=== PATIENT | female | born 1985 | race Caucasian/White ===

== ENCOUNTER 2016-10-18 00:03 | Emergency (ER) | payer OTHER ==
[2016-10-18 00:12] VITALS: BP 137/92; PULSE 77; TEMP 98; BMI 30.1
--- NOTE | 2016-10-18 02:02 | PDOC ---
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 Patient states this past , she had her tooth extracted. Patient was prescribed Amoxicillin and Tylenol for pain. She reports pain worsening and medications not helping. She denies any other complaints at this time. Timing/Duration: getting worse Severity: moderate Modifying Factors: improves with: medication Associated Symptoms: denies: denies symptoms, chest pain, cough, diaphoresis, fever/chills, headaches, loss of appetite, malaise, nausea/vomiting, rash, seizure, shortness of breath, syncope, weakness, other Aspirin Received prior to arrival: No: no aspirin today, unknown, 81 mg x 1, 81 mg x 2, 81 mg x 3, 81 mg x 4, 325 mg x 1, provided at home, provided by EMS, provided by ED Past History - Travel Traveled outside of the country in the last 30 days: No Close contact w/someone who was outside of country & ill: No - Past Medical History Allergies/Adverse Reactions: Allergies Allergy/AdvReac Type Severity Reaction Status Date / Time No Known Drug Allergies Allergy Verified 10/18/16 00:10 Home Medications: Ambulatory Orders Oxycodone HCl/Acetaminophen [Percocet 5/325 -] 1 - 2 tab PO Q6H #20 tab Docusate Sodium [Colace -] 100 mg PO BID #20 capsule 10/18/16 Oxycodone HCl/Acetaminophen [Endocet 7.5-325 mg Tablet] 1 each PO Q4H PRN #18 tablet MDD 6 tab 10/18/16 Anemia: Yes Asthma: No Cancer: No Cardiac Disorders: No Diabetes: No HTN: No Suicide Attempt (Hx): No Seizures: No Thyroid Disease: No - Reproductive History (#): 2 Para: 1 Therapeutic (s) & number: No Spontaneous : 0 - Immunization History Immunization Up to Date: Yes - Psycho/Social/Smoking Cessation Hx Anxiety: No Suicidal Ideation: No Smoking History: Never smoked Have you smoked in the past 12 months: No Hx Alcohol Use: No Drug/Substance Use Hx: No Substance Use Type: None Hx Substance Use Treatment: No Review of Systems - Review of Systems Able to Perform ROS?: Yes Is the patient limited Prydeinig proficient: No Constitutional: No: Chills, Fever HEENTM: Yes: Dental Problems All Other Systems: Reviewed and Negative *Physical Exam - Vital Signs Last Vital Signs Temp Pulse Resp BP Pulse Ox 98 F 77 18 137/92 99 10/18/16 00:05 10/18/16 00:05 10/18/16 00:05 10/18/16 00:10/18/16 00:05 - Physical Exam General Appearance: Yes: Nourished, Appropriately Dressed, Mild Distress. No: Apparent Distress, Moderate Distress, Severe Distress HEENT: positive: EOMI, LAURO, Normal ENT Inspection, Normal Voice, Symmetrical, TMs Normal, Pharynx Normal, Other (Tooth extraction site to patient right lower mouth with sutures in place. No inflammation or signs of dry socket noted.). negative: Pharyngeal Erythema, Tonsillar Exudate, Tonsillar Erythema, TM Bulging , TM Dull, TM Erythema Neck: positive: Trachea midline, Supple. negative: Stridor, Lymphadenopathy (R) , Lymphadenopathy (L) Respiratory/Chest: positive: Lungs Clear, Normal Breath Sounds. negative: Chest Tender, Respiratory Distress, Accessory Muscle Use, Labored Respiration, Rapid RR Cardiovascular: positive: Regular Rhythm, Regular Rate Gastrointestinal/Abdominal: positive: Normal Bowel Sounds, Soft. negative: Distended, Guarding, Rebound, Tenderness Musculoskeletal: positive: Normal Inspection. negative: CVA Tenderness Extremity: positive: Normal Capillary Refill, Normal Inspection, Normal Range of Motion. negative: Pedal Edema, Swelling, Calf Tenderness, Erythema, Inflammation Integumentary: positive: Normal Color, Dry, Warm. negative: Erythema, Moist, Hives, Rash, Swelling Neurologic: positive: nailer hand II-XII NML intact, Fully Oriented, Alert, Normal Mood/ Affect, Normal Response, Motor Strength 5/5 Medical Decision Making - Medical Decision Making 10/18/16 01:57 The Drug Utilization Report below displays all of the controlled substance prescriptions, if any, that your patient has filled in the last twelve months. The information displayed on this report is compiled from pharmacy submissions to the Department, and accurately reflects the information as submitted by the pharmacies. This report was requested by: Dennis Pérez | Reference #: [id number] *DC/Admit/Observation/Transfer Diagnosis at time of Disposition: Pain, dental H/O tooth extraction Qualifiers: Tooth loss class: unspecified tooth loss Qualified Code(s): K08.409 - Partial loss of teeth, unspecified cause, unspecified class - Discharge Dispostion Disposition: HOME Condition at time of disposition: Stable Admit: No - Prescriptions Prescriptions: Docusate Sodium [Colace -] 100 mg PO BID #20 capsule Oxycodone HCl/Acetaminophen [Endocet 7.5-325 mg Tablet] 1 each PO Q4H PRN #18 tablet MDD 6 tab PRN Reason: Severe Pain - Patient Instructions Printed Discharge Instructions: DI for Dental Pain Additional Instructions: FOLLOW UP WITH YOUR DENTIST IF SYMPTOMS PERSIST. TAKE MEDICATIONS PRESCRIBED. DO NOT DRIVE, DRINK ALCOHOL, OR OPERATE HEAVY MACHINERY WHILE TAKING OXYCODONE. Print Language: YI"
[2016-10-18] MEDS ORDERED: DOCUSATE SODIUM 100 MG CAPSULE (FP) PO ONE ×2 (02:08→02:26)
[2016-10-18] MEDS ORDERED: OXYCODONE/APAP 5/325MG COMBO TABLET PO ONE (02:08)
[2016-10-18] MEDS ORDERED: OXYCODONE/APAP 5/325MG COMBO TABLET ONE (02:25)
== END 2016-10-18 02:43 | disposition home or self-care (01) ==
LOC: JER 00:03
DX: K08.89 Other specified disorders of teeth and supporting structures (principal); K08.409 Partial loss of teeth, unspecified cause, unspecified class
CPT/HCPCS: 99282-25

== ENCOUNTER 2017-07-17 16:31 | Emergency (ER) | payer OTHER ==
[2017-07-17 16:50] VITALS: BMI 30.3
[2017-07-17] MEDS ORDERED: FAMOTIDINE 20 MG/50 ML IVPB 20 MG/50 ML MG IVPB ONE ×2 (17:10→18:37)
[2017-07-17] MEDS ORDERED: ACETAMINOPHEN 1000 MG/100 ML VIAL (NON FORMULARY) IVPB ONE (17:10)
[2017-07-17] MEDS ORDERED: ONDANSETRON 4 MG/2 ML VIAL IVPUSH ONE (17:10)
[2017-07-17] MEDS ORDERED: SODIUM CHLORIDE 0.9% 1000 ML INFUS.BAG IV ONE (17:10)
--- NOTE | 2017-07-17 17:10 | PDOC ---
History of Present Illness - General Chief Complaint: Pain, Acute Stated Complaint: PAIN, ACUTE Time Seen by Provider: 07/17/17 17:03 Past History - Past Medical History Allergies/Adverse Reactions: Allergies Allergy/AdvReac Type Severity Reaction Status Date / Time No Known Drug Allergies Allergy Verified 10/18/16 00:10 Home Medications: Ambulatory Orders Sulfamethoxazole/Trimethoprim [Bactrim Ds -] 1 tab PO BID #14 tablet 07/17/17 Anemia: Yes Asthma: No Cancer: No Cardiac Disorders: No CVA: No COPD: No DVT: No Diabetes: No HTN: No Seizures: No Thyroid Disease: No - Reproductive History (#): 2 Para: 1 Therapeutic (s) & number: No Spontaneous : 0 - Immunization History Immunization Up to Date: Yes - Suicide/Smoking/Psychosocial Hx Smoking History: Never smoked Have you smoked in the past 12 months: No Information on smoking cessation initiated: No Hx Alcohol Use: No Drug/Substance Use Hx: No Substance Use Type: None Hx Substance Use Treatment: No *Physical Exam - Vital Signs Last Vital Signs Temp Pulse Resp BP Pulse Ox 99.2 F 108 H 18 124/71 99 07/17/17 16:31 07/17/17 16:31 07/17/17 16:31 07/17/17 16:31 07/17/17 16:31 ED Treatment Course - LABORATORY CBC & Chemistry Diagram: 07/17/17 18:00 07/17/17 20:50 Medical Decision Making - Medical Decision Making 07/17/17 17:30 a/p: 32yo female with subjective fevers since last night with L flank pain -also with dysuria - suspect uti vs pyelo vs renal colic -nausea today -no vomiting -last tyleno at 7a today -will check labs, ua -will do bedside u/s of gallbladder and renal -will medicate with ivf hydration, tylenol, zofran -will monitor and reassess *DC/Admit/Observation/Transfer Diagnosis at time of Disposition: Pyelonephritis - Discharge Dispostion Disposition: HOME Condition at time of disposition: Stable - Prescriptions Prescriptions: Sulfamethoxazole/Trimethoprim [Bactrim Ds -] 1 tab PO BID #14 tablet - Referrals - Patient Instructions Printed Discharge Instructions: DI for Kidney Infection Additional Instructions: Take your antibiotics as prescribed. Follow up with your primary doctor within 3 -4 days. Return to the emergency department if you have any new, worsening, or concerning symptoms. Print Language: BENINESE - Post Discharge Activity - Attestations Physician Attestion: 07/18/17 09:13 I, Dr. Moira Costello, DO, attest that this document has been prepared under my direction and personally reviewed by me in its entirety. I further attest, that it accurately reflects all work, treatment, procedures and medical decision -making performed by me.
[2017-07-17] MEDS ORDERED: ONDANSETRON 4 MG/2 ML VIAL ONE (17:21)
[2017-07-17] MEDS ORDERED: ACETAMINOPHEN INJECTION 100 ML IVPB ONE (17:21)
[2017-07-17 18:08] LABS: BASO % 0.4 % (0-2.0); EOS % 0.5 % (0-4.5); HEMATOCRIT 35.8 % (32.4-45.2); LYMPH % 16.2 % (8-40); MCH 29.4 pg (25.7-33.7); MCHC 33.6 g/dl (32.0-36.0); MEAN CELL VOLUME 87.4 fl (80-96); MEAN PLT VOLUME 9.1 fl (7.5-11.1); MONO % 6.1 % (3.8-10.2); NEUT % 76.8 % (42.8-82.8); PLATELET COUNT 195 K/MM3 (134-434); RDW 14.2 % (11.6-15.6); WHITE BLOOD COUNT 6.9 K/mm3 (4.0-10.0)
[2017-07-17 19:12] LABS: URINE APPEARANCE CLEAR; URINE BILIRUBIN NEGATIVE (<2.0 mg/dL); URINE BLOOD 1+ (NEGATIVE); URINE COLOR YELLOW; URINE GLUCOSE (UA) NEGATIVE (NEGATIVE); URINE KETONE NEGATIVE (NEGATIVE); URINE NITRITE NEGATIVE (NEGATIVE); URINE PROTEIN NEGATIVE (NEGATIVE)
[2017-07-17 19:14] LABS: URINE LEUK ESTERASE 1+ (NEGATIVE)
[2017-07-17 19:16] LABS: EPI CELLS RARE /HPF (FEW); URINE BACTERIA MANY /hpf (NONE SEEN); URINE MUCUS RARE
[2017-07-17 21:25] LABS: ALBUMIN 3.3 g/dl (3.4-5.0); ALK PHOS 59 U/L (45-117); ANION GAP 5 (8-16); BILIRUBIN,TOTAL 0.3 mg/dL (0.2-1.0); BLOOD UREA NITROGEN 5 mg/dL (7-18); CALCIUM 7.8 mg/dL (8.5-10.1); CHLORIDE 111 mmol/L (98-107); CO2 24 mmol/L (21-32); CREATININE 0.6 mg/dL (0.55-1.02); GLUCOSE,RANDOM 88 mg/dL (74-106); POTASSIUM 3.4 mmol/L (3.5-5.1); SGOT/AST 9 U/L (15-37); SGPT/ALT 23 U/L (12-78); SODIUM 140 mmol/L (136-145); TOT PROT 6.5 g/dl (6.4-8.2)
--- NOTE | 2017-07-17 21:59 | PDOC ---
*Physical Exam - Vital Signs Last Vital Signs Temp Pulse Resp BP Pulse Ox 99.2 F 108 H 18 124/71 99 07/17/17 16:31 07/17/17 16:31 07/17/17 16:31 07/17/17 16:31 07/17/17 16:31 ED Treatment Course - LABORATORY CBC & Chemistry Diagram: 07/17/17 18:00 07/17/17 20:50 - ADDITIONAL ORDERS Additional order review: Laboratory Results 07/17/17 07/17/17 07/17/17 20:50 19:51 18:00 Sodium 140 Cancelled Cancelled Potassium 3.4 L Cancelled Cancelled Chloride 111 H Cancelled Cancelled Carbon Dioxide 24 Cancelled Cancelled Anion Gap 5 L Cancelled Cancelled BUN 5 L Cancelled Cancelled Creatinine 0.6 Cancelled Cancelled Creat Clearance w eGFR > 60 Cancelled Cancelled Random Glucose 88 Cancelled Cancelled Calcium 7.8 L Cancelled Cancelled Total Bilirubin 0.3 Cancelled Cancelled AST 9 L Cancelled Cancelled ALT 23 Cancelled Cancelled Alkaline Phosphatase 59 Cancelled Cancelled Total Protein 6.5 Cancelled Cancelled Albumin 3.3 L Cancelled Cancelled Lipase Cancelled Urine Color Urine Appearance Urine pH Ur Specific Gordon Urine Protein Urine Glucose (UA) Urine Ketones Urine Blood Urine Nitrite Urine Bilirubin Urine Urobilinogen Ur Leukocyte Esterase Urine WBC (Auto) Urine RBC (Auto) Ur Epithelial Cells Urine Bacteria Urine Mucus 07/17/17 17:51 Sodium Potassium Chloride Carbon Dioxide Anion Gap BUN Creatinine Creat Clearance w eGFR Random Glucose Calcium Total Bilirubin AST ALT Alkaline Phosphatase Total Protein Albumin Lipase Urine Color Yellow Urine Appearance Clear Urine pH 7.0 Ur Specific Gordon 1.011 Urine Protein Negative Urine Glucose (UA) Negative Urine Ketones Negative Urine Blood 1+ H Urine Nitrite Negative Urine Bilirubin Negative Urine Urobilinogen 2.0 H Ur Leukocyte Esterase 1+ H Urine WBC (Auto) 31 Urine RBC (Auto) 3 Ur Epithelial Cells Rare Urine Bacteria Many Urine Mucus Rare 07/17/17 18:00 RBC 4.10 D MCV 87.4 MCHC 33.6 RDW 14.2 MPV 9.1 Neutrophils % 76.8 Lymphocytes % 16.2 Monocytes % 6.1 D Eosinophils % 0.5 Basophils % 0.4 - Medications Given in the ED: ED Medications Discontinued Medications Generic Name Dose Route Start Last Admin Trade Name Freq PRN Reason Stop Dose Admin Acetaminophen 1,000 mg 03/31/18 17:10 07/17/17 17:45 Ofirmev Injection - IVPB 07/17/17 17:11 1,000 mg ONCE ONE Administration Famotidine/Sodium Chloride 20 mg in 50 mls @ 100 mls/hr 07/17/17 17:10 18:40 Pepcid 20 Mg Premixed Ivpb - IVPB 07/17/17 17:39 100 mls/hr ONCE ONE Administration Ondansetron HCl 4 mg 07/17/17 17:10 07/17/17 17:45 Zofran Injection IVPUSH 07/17/17 17:11 4 mg ONCE ONE Administration Sodium Chloride 1,000 ml 07/17/17 17:10 07/17/17 17:45 Normal Saline - IV 07/17/17 17:11 1,000 ml ONCE ONE Administration Medical Decision Making - Medical Decision Making 07/17/17 22:00 Care received at 1900 Patient presents with flank pain and urinary symptoms, was pending labs. Urinalysis concerning for UTI. Labs with very mild hypokalemia but otherwise normal creatinine. +mild left CVA tenderness consistent with possible pyelonephritis. Repeat vitals within normal limits Previous microbiology reviewed, patient with pansensitive Escherichia coli UTI in the past. We'll prescribe 7 day course of Bactrim for uncomplicated pyelonephritis. Advised patient to follow-up with her primary doctor within 3-4 days. Patient clinically well-appearing, requests discharge home. I discussed the physical exam findings, ancillary test results and final diagnoses with the patient. I answered all of the patient's questions. The patient was satisfied with the care received and felt comfortable with the discharge plan and treatment plan. The patient will call their primary care physician within 24 hours to arrange follow-up and will return to the Emergency Department with any new, persistent or worsening symptoms. *DC/Admit/Observation/Transfer Diagnosis at time of Disposition: Pyelonephritis - Discharge Dispostion Disposition: HOME Condition at time of disposition: Stable Admit: No - Prescriptions Prescriptions: Sulfamethoxazole/Trimethoprim [Bactrim Ds -] 1 tab PO BID #14 tablet - Referrals - Patient Instructions Printed Discharge Instructions: DI for Kidney Infection Additional Instructions: Take your antibiotics as prescribed. Follow up with your primary doctor within 3 -4 days. Return to the emergency department if you have any new, worsening, or concerning symptoms. Print Language: SUDANESE - Post Discharge Activity - Attestations Physician Attestion: 07/17/17 22:09 I, Dr. Annamaria Garduno MD, attest that this document has been prepared under my direction and personally reviewed by me in its entirety. I further attest, that it accurately reflects all work, treatment, procedures and medical decision -making performed by me.
[2017-07-17 22:00] VITALS: BP 107/55; PULSE 77; TEMP 98.5
== END 2017-07-17 22:38 | disposition home or self-care (01) ==
LOC: JER 16:31
PROC: 3E033GC Introduction of Other Therapeutic Substance into Peripheral Vein, Percutaneous Approach (ICD-10-PCS; principal; 2017-07-17)
PROC: 3E033GC Introduction of Other Therapeutic Substance into Peripheral Vein, Percutaneous Approach (ICD-10-PCS; 2017-07-17)
PROC: 3E033NZ Introduction of Analgesics, Hypnotics, Sedatives into Peripheral Vein, Percutaneous Approach (ICD-10-PCS; 2017-07-17)
DX: N12 Tubulo-interstitial nephritis, not specified as acute or chronic (principal); E87.6 Hypokalemia
CPT/HCPCS: 36415; 80053; 81003; 81015; 85025; 96365; 96375; 99282-25; J0131; J7030

== ENCOUNTER 2018-01-11 01:08 | Emergency (ER) | payer OTHER ==
--- NOTE | 2018-01-11 01:24 | PDOC ---
History of Present Illness - General Stated Complaint: URINARY PROBLEM, ABD PAIN Time Seen by Provider: 01/11/18 01:24 - History of Present Illness Initial Comments: 32 year old female with history of pyelopnephritis 6 months ago presenting with lower abdominal/ suprapubic pain for the past few days. States that she gets this pain intermittently but it is much worse today. Describes the pain as crampy and sharp with exacerbation during urination. denies any urinary frequency but occasionally has malodorous urine. Denies fevers, chills, nausea, vomiting, diarrhea, constipation, or other symptoms. She does not have a primary care physician. 01/11/18 02:27 Past History - Past Medical History Allergies/Adverse Reactions: Allergies Allergy/AdvReac Type Severity Reaction Status Date / Time No Known Drug Allergies Allergy Verified 01/11/18 01:29 Home Medications: Ambulatory Orders Nitrofurantoin Monohyd/M-Cryst [Macrobid -] 100 mg PO BID #10 capsule 01/11/18 Anemia: Yes Asthma: No Cancer: No Cardiac Disorders: No CVA: No COPD: No DVT: No Diabetes: No HTN: No Seizures: No Thyroid Disease: No - Reproductive History (#): 2 Para: 1 Therapeutic (s) & number: No Spontaneous : 0 - Immunization History Immunization Up to Date: Yes - Suicide/Smoking/Psychosocial Hx Smoking History: Never smoked Have you smoked in the past 12 months: No Hx Alcohol Use: No Drug/Substance Use Hx: No Substance Use Type: None Hx Substance Use Treatment: No Review of Systems - Review of Systems Constitutional: No: Chills, Diaphoresis, Fever HEENTM: No: Blurred Vision, Tearing Respiratory: No: Cough, Shortness of Breath, SOB with Exertion Cardiac (ROS): No: Chest Pain, Edema, Irregular Heart Rate ABD/GI: No: Diarrhea, Nausea, Vomiting : Yes: Dysuria, Pain. No: Discharge, Frequency, Flank Pain, Hematuria Musculoskeletal: No: Back Pain, Joint Pain, Muscle Pain, Muscle Weakness Integumentary: No: Bruising, Change in Color, Erythema, Lesions Neurological: No: Headache, Numbness, Paresthesia, Tremors Psychiatric: No: Anxiety, Depression Endocrine: No: Excessive Sweating, Flushing *Physical Exam - Physical Exam General Appearance: Yes: Nourished, Appropriately Dressed. No: Apparent Distress HEENT: positive: EOMI, LAURO, Normal ENT Inspection, Normal Voice Neck: positive: Trachea midline, Normal Thyroid, Supple. negative: Tender, Rigid Respiratory/Chest: positive: Lungs Clear, Normal Breath Sounds. negative: Chest Tender, Respiratory Distress, Accessory Muscle Use Cardiovascular: positive: Regular Rhythm, Regular Rate Gastrointestinal/Abdominal: positive: Normal Bowel Sounds, Tender (suprapubic tenderness), Flat, Soft Lymphatic: negative: Adenopathy, Tenderness Musculoskeletal: positive: Normal Inspection. negative: CVA Tenderness, Decreased Range of Motion Extremity: positive: Normal Capillary Refill, Normal Inspection, Normal Range of Motion. negative: Tender Integumentary: positive: Normal Color, Dry, Warm Neurologic: positive: collar pointer II-XII NML intact, Fully Oriented, Alert, Normal Mood/ Affect, Normal Response, Motor Strength / ED Treatment Course - LABORATORY CBC & Chemistry Diagram: 01/11/18 01:42 01/11/18 01:42 Medical Decision Making - Medical Decision Making 32 year old with lower abdominal pain and suprapubic ttp. UA positive for infection. Will treat with macrobid given that she was given Bactrim within the last year for UTI. UC pending. Given one dose macrobid here and will DC with 5 days of macrobid. 01/11/18 02:45 *DC/Admit/Observation/Transfer Diagnosis at time of Disposition: UTI (urinary tract infection) Qualifiers: Urinary tract infection type: acute cystitis Hematuria presence: with hematuria Qualified Code(s): N30.01 - Acute cystitis with hematuria - Discharge Dispostion Disposition: HOME Condition at time of disposition: Improved Decision to Admit order: No - Prescriptions Prescriptions: Nitrofurantoin Monohyd/M-Cryst [Macrobid -] 100 mg PO BID #10 capsule - Referrals Referrals: [facility] – [place] [facility] [place] [Provider Group] - Patient Instructions Printed Discharge Instructions: DI for Urinary Tract Infection (UTI) Additional Instructions: Usted tiene siobhan infeccin en garrido orina. Por favor tome garrido antibitico Macrobid dos veces al da brit 5 evangelista. Llame a nuestra clnica de atencin primaria para buscar un mdico de atencin primaria. Regrese a nuestro servicio de urgencias si tiene un empeoramiento del dolor, fiebre, nuseas, vmitos u otros sntomas. Print Language: BURMESE - Post Discharge Activity
[2018-01-11 01:30] VITALS: BP 154/88; PULSE 93; TEMP 97.6; BMI 25.8
[2018-01-11 01:53] LABS: BASO % 0.8 % (0-2.0); EOS % 2.6 % (0-4.5); HEMATOCRIT 39.1 % (32.4-45.2); HEMOGLOBIN 13.1 GM/dL (10.7-15.3); MCH 28.2 pg (25.7-33.7); MCHC 33.3 g/dl (32.0-36.0); MEAN CELL VOLUME 84.5 fl (80-96); MEAN PLT VOLUME 8.1 fl (7.5-11.1); NEUT % 59.6 % (42.8-82.8); PLATELET COUNT 339 K/MM3 (134-434); RBC 4.63 M/mm3 (3.60-5.2); RDW 13.9 % (11.6-15.6); WHITE BLOOD COUNT 10.4 K/mm3 (4.0-10.0)
[2018-01-11 01:55] LABS: URINE APPEARANCE CLEAR; URINE BILIRUBIN NEGATIVE (<2.0 mg/dL); URINE COLOR AMBER; URINE GLUCOSE (UA) NEGATIVE (NEGATIVE); URINE KETONE NEGATIVE (NEGATIVE); URINE LEUK ESTERASE NEGATIVE (NEGATIVE); URINE NITRITE POSITIVE (NEGATIVE); URINE UROBILINOGEN 4.0 E.U/dl mg/dL (0.2-1.0)
[2018-01-11 02:00] LABS: URINE PROTEIN 1+ (NEGATIVE)
[2018-01-11 02:01] LABS: EPI CELLS FEW /HPF (FEW); URINE BACTERIA RARE /hpf (NONE SEEN); URINE MUCUS MODERATE
--- NOTE | 2018-01-11 02:15 | PDOC ---
Attending Attestation - Resident Resident Name: Boston Mobley - ED Attending Attestation I have performed the following: I have examined & evaluated the patient, The case was reviewed & discussed with the resident, I agree w/resident's findings & plan, Exceptions are as noted - HPI HPI: 32 yo F presents with dysuria, lower abd pain. No nausea, vomiting, fever. - Physicial Exam PE: GENERAL: Awake, alert, and fully oriented, in no acute distress HEAD: No signs of trauma EYES: PERRLA, EOMI, sclera anicteric, conjunctiva clear ENT: Auricles normal inspection, hearing grossly normal, nares patent, oropharynx clear without exudates. Moist mucosa NECK: Normal ROM, supple, no lymphadenopathy, JVD, or masses LUNGS: Breath sounds equal, clear to auscultation bilaterally. No wheezes, and no crackles HEART: Regular rate and rhythm, normal S1 and S2, no murmurs, rubs or gallops ABDOMEN: Soft, +suprapubic tenderness, normoactive bowel sounds. No guarding, no rebound. No masses EXTREMITIES: Normal range of motion, no edema. No clubbing or cyanosis. No cords, erythema, or tenderness NEUROLOGICAL: Cranial nerves II through XII grossly intact. Normal speech, normal gait SKIN: Warm, Dry, normal turgor, no rashes or lesions noted. - Medical Decision Making UA consistent with UTI. Will treat with macrobid. Cultures pending.
[2018-01-11 02:17] LABS: ALK PHOS 76 U/L (45-117); ANION GAP 7 MMOL/L (8-16); BILIRUBIN,TOTAL 0.4 mg/dL (0.2-1); BLOOD UREA NITROGEN 15 mg/dL (7-18); CHLORIDE 104 mmol/L (98-107); CO2 27 mmol/L (21-32); CREATININE 0.8 mg/dL (0.55-1.3); GLUCOSE,RANDOM 86 mg/dL (74-106); POTASSIUM 4.2 mmol/L (3.5-5.1); SGOT/AST 16 U/L (15-37); SGPT/ALT 26 U/L (13-61); SODIUM 138 mmol/L (136-145)
[2018-01-11 02:25] LABS: HCG,QUALITATIVE URINE Negative
[2018-01-11] MEDS ORDERED: NITROFURANTOIN MACROCRYSTAL 50 MG CAPSULE (FP) PO SCH (02:30)
[2018-01-11] MEDS ORDERED: NITROFURANTOIN MACROCRYSTAL 50 MG CAPSULE (FP) ONE (02:36)
== END 2018-01-11 02:52 | disposition home or self-care (01) ==
LOC: JER 01:08
DX: N30.01 Acute cystitis with hematuria (principal); D64.9 Anemia, unspecified
CPT/HCPCS: 36415; 80053; 81003; 81015; 84703; 85025; 87086; 99282-25

== ENCOUNTER 2018-06-04 15:43 | Emergency (ER) | payer OTHER ==
[2018-06-04 15:57] VITALS: BP 119/69; PULSE 77; TEMP 98.4; BMI 24.3
--- NOTE | 2018-06-04 16:48 | PDOC ---
History of Present Illness - General Chief Complaint: Pain Stated Complaint: STOMACH PAIN Time Seen by Provider: 06/04/18 16:32 History Source: Patient Exam Limitations: Language Barrier Past History - Past Medical History Allergies/Adverse Reactions: Allergies Allergy/AdvReac Type Severity Reaction Status Date / Time No Known Drug Allergies Allergy Verified 06/04/18 15:46 Home Medications: Ambulatory Orders Nitrofurantoin Monohyd/M-Cryst [Macrobid -] 100 mg PO BID #10 capsule 01/11/18 Famotidine [Pepcid -] 20 mg PO DAILY #30 tablet 06/04/18 Anemia: Yes Asthma: No Cancer: No Cardiac Disorders: No CVA: No COPD: No DVT: No Diabetes: No HTN: No Seizures: No Thyroid Disease: No - Reproductive History (#): 2 Para: 1 Therapeutic (s) & number: No Spontaneous : 0 - Immunization History Immunization Up to Date: Yes - Suicide/Smoking/Psychosocial Hx Smoking History: Never smoked Have you smoked in the past 12 months: No Hx Alcohol Use: No Drug/Substance Use Hx: No Substance Use Type: None Hx Substance Use Treatment: No *Physical Exam - Vital Signs Last Vital Signs Temp Pulse Resp BP Pulse Ox 98.4 F 77 18 119/69 99 06/04/18 15:44 06/04/18 15:44 06/04/18 15:44 06/04/18 15:44 06/04/18 15:44 - Physical Exam General Appearance: No: Apparent Distress Respiratory/Chest: positive: Lungs Clear, Normal Breath Sounds. negative: Respiratory Distress Cardiovascular: positive: Regular Rhythm, Regular Rate, S1, S2. negative: Murmur Female Pelvic Exam: positive: normal external exam, normal adnexa. negative: CMT, discharge, adnexal tenderness, vaginal bleeding Gastrointestinal/Abdominal: positive: Normal Bowel Sounds, Soft. negative: Tender, Distended, Guarding, Rebound Musculoskeletal: negative: CVA Tenderness Integumentary: positive: Normal Color Neurologic: positive: Alert, Normal Mood/Affect Moderate Sedation - Procedure Monitoring Vital Signs: Procedure Monitoring Vital Signs Temperature 98.4 F 06/04/18 15:44 Pulse Rate 77 06/04/18 15:44 Respiratory Rate 18 06/04/18 15:44 Blood Pressure 119/69 06/04/18 15:44 O2 Sat by Pulse Oximetry (%) 99 06/04/18 15:44 ED Treatment Course - LABORATORY CBC & Chemistry Diagram: 06/04/18 17:24 06/04/18 17:24 Medical Decision Making - Medical Decision Making 33 y/o F with no sig pmh presents with burning epigastric pain for 1 month along with occasional lower abdominal pain and nausea. Has tried Tylenol and Motrin which do not seem to help much. Mentions food can exacerbate the pain. Mentions seeing an TECHNICIAN SUPPORT ENGINEER for her lower abdominal pain and was ordered for pelvic ultrasound, which is pending to be done. Also endorses having dysuria x 3 days. States she had her menstrual cycle twice last month, which is a bit unusual for her. Denies fever, sob, cp, urinary frequency/urgency, hematuria, unusual vaginal discharge. Only surgical hx was Consider gastritis? Given unremarkable pelvic exam, not suspicious for acute pelvic pathology Plan: Labs, UCG, UA, UCx, Zantac and Maalox, reassess 06/04/18 16:48 Labs reviewed and unremarkable UA negative Patient feeling a bit better after meds Will refer to GI Stable for dc 06/04/18 18:39 *DC/Admit/Observation/Transfer Diagnosis at time of Disposition: Epigastric pain - Discharge Dispostion Disposition: HOME Condition at time of disposition: Improved Decision to Admit order: No - Prescriptions Prescriptions: Famotidine [Pepcid -] 20 mg PO DAILY #30 tablet - Referrals Referrals: Dorothy Mccormick MD [Staff Physician] - 2 Days - Patient Instructions Printed Discharge Instructions: DI for Gastritis Additional Instructions: Thank you for choosing [facility]. It was a pleasure taking care of you. The burning in your stomach may be related to gastritis Take Pepcid as prescribed You were referred to GI doctor - please call for follow-up Also follow-up with your regular doctor in 2-3 days Return to the Emergency Department if your symptoms worsen or persist or have other concerning symptoms. Angelica por elegir el [facility]. Fue un placer cuidar de ti. La quemazn en el estmago puede estar relacionada con la gastritis. La Vernia Pepcid segn lo prescrito Se lo remiti a un mdico de GI; llame para realizar un seguimiento. Tambin seguimiento con garrido mdico regular en 2-3 evangelista. Regrese al Departamento de Emergencias si derrick sntomas empeoran o persisten o si tiene otros sntomas relacionados. - Post Discharge Activity
[2018-06-04] MEDS ORDERED: MAG HYDROX/AL HYDROX/SIMETH 30 ML UNIT-DOSE CUP PO ONE (17:14)
[2018-06-04] MEDS ORDERED: RANITIDINE HCL 150 MG TABLET (FP) PO ONE (17:14)
[2018-06-04] MEDS ORDERED: KETOROLAC TROMETHAMINE 30 MG/1 ML VIAL IVPUSH ONE (17:40)
[2018-06-04 17:44] LABS: URINE APPEARANCE CLEAR; URINE BILIRUBIN NEGATIVE (<2.0 mg/dL); URINE COLOR STRAW; URINE GLUCOSE (UA) NEGATIVE (NEGATIVE); URINE KETONE NEGATIVE (NEGATIVE); URINE LEUK ESTERASE TRACE (NEGATIVE); URINE NITRITE NEGATIVE (NEGATIVE); URINE PROTEIN NEGATIVE (NEGATIVE); URINE UROBILINOGEN NEGATIVE mg/dL (0.2-1.0)
[2018-06-04 17:45] LABS: HCG,QUALITATIVE URINE Negative
[2018-06-04 17:52] LABS: BASO % 0.5 % (0-2.0); EOS % 1.4 % (0-4.5); LYMPH % 27.9 % (8-40); MCH 29.5 pg (25.7-33.7); MCHC 34.1 g/dl (32.0-36.0); MEAN CELL VOLUME 86.4 fl (80-96); MEAN PLT VOLUME 9.1 fl (7.5-11.1); NEUT % 65.2 % (42.8-82.8); PLATELET COUNT 255 K/MM3 (134-434); RDW 13.7 % (11.6-15.6); WHITE BLOOD COUNT 8.7 K/mm3 (4.0-10.0)
[2018-06-04 17:53] LABS: EPI CELLS RARE /HPF (FEW)
[2018-06-04] MEDS ORDERED: MAG HYDROX/AL HYDROX/SIMETH 30 ML UNIT-DOSE CUP ONE (18:04)
[2018-06-04] MEDS ORDERED: RANITIDINE HCL 150 MG TABLET (FP) ONE (18:04)
[2018-06-04] MEDS ORDERED: KETOROLAC TROMETHAMINE 30 MG/1 ML VIAL ONE (18:05)
[2018-06-04 18:24] LABS: ALBUMIN 3.9 g/dl (3.4-5.0); ALK PHOS 72 U/L (45-117); ANION GAP 7 MMOL/L (8-16); BILIRUBIN,TOTAL 0.3 mg/dL (0.2-1); BLOOD UREA NITROGEN 10 mg/dL (7-18); CALCIUM 8.6 mg/dL (8.5-10.1); CHLORIDE 106 mmol/L (98-107); CO2 25 mmol/L (21-32); CREATININE 0.6 mg/dL (0.55-1.3); GLUCOSE,RANDOM 81 mg/dL (74-106); POTASSIUM 3.9 mmol/L (3.5-5.1); SGOT/AST 17 U/L (15-37); SGPT/ALT 27 U/L (13-61); SODIUM 138 mmol/L (136-145); TOT PROT 7.8 g/dl (6.4-8.2)
== END 2018-06-04 19:00 | disposition home or self-care (01) ==
LOC: JER 15:43
DX: R10.13 Epigastric pain (principal)
CPT/HCPCS: 36415; 80053; 81003; 81015; 84703; 85025; 87086; 99282-25

== ENCOUNTER 2018-10-18 20:24 | Emergency (ER) | payer OTHER ==
[2018-10-18 20:32] VITALS: BP 116/64; PULSE 71; TEMP 98.2; BMI 27.0
--- NOTE | 2018-10-18 20:34 | PDOC ---
Rapid Medical Evaluation Chief Complaint: Pain Time Seen by Provider: 10/18/18 20:32 Medical Evaluation: Allergies Allergy/AdvReac Type Severity Reaction Status Date / Time No Known Drug Allergies Allergy Verified 10/18/18 20:31 Vital Signs Temp Pulse Resp BP Pulse Ox 98.2 F 71 18 116/64 100 10/18/18 20:29 10/18/18 20:29 10/18/18 20:29 10/18/18 20:29 10/18/18 20:29 10/18/18 20:32 the patient is a 33 y/o F who presents wtih 3 days of lower abdominal pain and flank pain. She admits to dysuria. Exam: LLQ discomfort, VSS Orders: Labs, urine Pt to proceed to the ER for further evaluation Discharge Disposition - Diagnosis Dysuria - Referrals - Patient Instructions - Post Discharge Activity
--- NOTE | 2018-10-18 20:43 | PDOC ---
*Physical Exam - Vital Signs Last Vital Signs Temp Pulse Resp BP Pulse Ox 98.2 F 71 18 116/64 100 10/18/18 20:29 10/18/18 20:29 10/18/18 20:29 10/18/18 20:29 10/18/18 20:29 ED Treatment Course - LABORATORY CBC & Chemistry Diagram: 10/18/18 21:15 10/18/18 21:15 Medical Decision Making - Medical Decision Making 10/18/18 20:43 Patient seen by the advanced practice provider under my direct supervision. Ancillary testing reviewed as necessary. I agree with plan as outlined by the advanced practice provider. *DC/Admit/Observation/Transfer Diagnosis at time of Disposition: Dysuria UTI (urinary tract infection) Qualifiers: Urinary tract infection type: acute cystitis Hematuria presence: without hematuria Qualified Code(s): N30.00 - Acute cystitis without hematuria - Discharge Dispostion Disposition: HOME - Prescriptions Prescriptions: Cephalexin Monohydrate [Keflex -] 500 mg PO BID #20 capsule - Referrals Referrals: Iva Carlisle NP [Primary Care Provider] - - Patient Instructions Printed Discharge Instructions: DI for Urinary Tract Infection (UTI) Additional Instructions: Drink plenty of fluids take cephalexin as prescribed. Take ibuprofen every 6 hours as needed for [id number] pain Return to the emergency room if symptoms worsen Additional Instructions: * Please call your personal physician to report your Emergency Department visit and to report your progress, if any. * If there is no improvement in symptoms in 2 days call your physician. * Return to the Emergency Department for any worsening symptoms. - Post Discharge Activity
--- NOTE | 2018-10-18 21:02 | PDOC ---
History of Present Illness - General Chief Complaint: Pain Stated Complaint: PELVIC PAIN Time Seen by Provider: 10/18/18 20:32 History Source: Patient - History of Present Illness Initial Comments: 10/18/18 20:50 33 year old female with left flank pain radiating to left groin x 3days. reports dysuria, frequency of urination. . denies vaginal bleeding/ discharge LMP: 10/08/2018. history of UTIs Timing/Duration: reports: constant Past History - Past Medical History Allergies/Adverse Reactions: Allergies Allergy/AdvReac Type Severity Reaction Status Date / Time No Known Drug Allergies Allergy Verified 10/18/18 20:31 Home Medications: Ambulatory Orders Famotidine [Pepcid -] 20 mg PO DAILY #30 tablet 06/04/18 Cephalexin Monohydrate [Keflex -] 500 mg PO BID #20 capsule 10/18/18 Anemia: Yes Asthma: No Cancer: No Cardiac Disorders: No CVA: No COPD: No DVT: No Diabetes: No HTN: No Seizures: No Thyroid Disease: No - Reproductive History (#): 2 Para: 1 Therapeutic (s) & number: No Spontaneous : 0 - Immunization History Immunization Up to Date: Yes - Suicide/Smoking/Psychosocial Hx Smoking History: Never smoked Have you smoked in the past 12 months: No Hx Alcohol Use: No Drug/Substance Use Hx: No Substance Use Type: None Hx Substance Use Treatment: No Review of Systems - Review of Systems Able to Perform ROS?: Yes Is the patient limited Vincentian proficient: No Constitutional: No: Symptoms Reported, See HPI, Chills, Diaphoresis, Fever, Loss of Appetite, Malaise, Night Sweats, Weakness, Weight Stable, Unintentional Wgt. Loss, Unexplained wgt Loss, Other ABD/GI: Yes: Nausea. No: Symptoms Reported, See HPI, Abdominal Distended, Abd. Pain w/ defecation, Blood Streaked Bowels, Constipated, Diarrhea, Difficulty Swallowing, Poor Appetite, Poor Fluid Intake, Rectal Bleeding, Vomiting, Indigestion, Abdominal cramping, Tarry Stools, Other : Yes: Dysuria, Frequency, Flank Pain Musculoskeletal: No: Symptoms Reported, See HPI, Back Pain, Gout, Joint Pain, Joint Swelling, Muscle Pain, Muscle Weakness, Neck Pain, Joint Stiffness, Other Integumentary: No: Symptoms Reported, See HPI, Bruising, Change in Color, Change in Hair/Nails, Dryness, Erythema, Flushing, Lesions, Lumps, Pallor, Pruritus, Rash, Sweating, Other *Physical Exam - Vital Signs Last Vital Signs Temp Pulse Resp BP Pulse Ox 98.2 F 71 18 116/64 100 10/18/18 20:29 10/18/18 20:29 10/18/18 20:29 10/18/18 20:29 10/18/18 20:29 - Physical Exam General Appearance: Yes: Appropriately Dressed Respiratory/Chest: positive: Lungs Clear, Normal Breath Sounds Cardiovascular: positive: Regular Rhythm, Regular Rate Female Pelvic Exam: positive: normal external exam, cervical os closed, adnexal tenderness (left adenxal tenderness). negative: discharge, Bartholin mass, vaginal bleeding Gastrointestinal/Abdominal: positive: Normal Bowel Sounds, Tender (suprapubic area), Soft Musculoskeletal: positive: CVA Tenderness (L) Extremity: positive: Normal Capillary Refill, Normal Inspection, Normal Range of Motion Integumentary: positive: Normal Color, Dry, Warm Neurologic: positive: Fully Oriented, Alert, Normal Mood/Affect ED Treatment Course - LABORATORY CBC & Chemistry Diagram: 10/18/18 21:15 10/18/18 21:15 Progress Note - Progress Note Progress Note: A: uti P: ua ucx cbc cmp transvaginal US *DC/Admit/Observation/Transfer Diagnosis at time of Disposition: Dysuria UTI (urinary tract infection) Qualifiers: Urinary tract infection type: acute cystitis Hematuria presence: without hematuria Qualified Code(s): N30.00 - Acute cystitis without hematuria - Discharge Dispostion Disposition: HOME Condition at time of disposition: Fair - Prescriptions Prescriptions: Cephalexin Monohydrate [Keflex -] 500 mg PO BID #20 capsule - Referrals Referrals: Iva Carlisle NP [Primary Care Provider] - - Patient Instructions Printed Discharge Instructions: DI for Urinary Tract Infection (UTI) Additional Instructions: Drink plenty of fluids take cephalexin as prescribed. Take ibuprofen every 6 hours as needed for [id number] pain Return to the emergency room if symptoms worsen Additional Instructions: * Please call your personal physician to report your Emergency Department visit and to report your progress, if any. * If there is no improvement in symptoms in 2 days call your physician. * Return to the Emergency Department for any worsening symptoms. - Post Discharge Activity
[2018-10-18] MEDS ORDERED: SODIUM CHLORIDE 1,000 ML IV STA (21:09)
[2018-10-18] MEDS ORDERED: ONDANSETRON 4 MG/2 ML VIAL IVPUSH ONE (21:09)
[2018-10-18] MEDS ORDERED: ONDANSETRON 4 MG/2 ML VIAL ONE (21:20)
[2018-10-18 21:24] LABS: BASO % 0.6 % (0-2.0); EOS % 3.9 % (0-4.5); HEMATOCRIT 37.7 % (32.4-45.2); HEMOGLOBIN 12.2 GM/dL (10.7-15.3); LYMPH % 39.3 % (8-40); MCH 26.6 pg (25.7-33.7); MCHC 32.3 g/dl (32.0-36.0); MEAN CELL VOLUME 82.2 fl (80-96); MEAN PLT VOLUME 8.8 fl (7.5-11.1); MONO % 5.6 % (3.8-10.2); NEUT % 50.6 % (42.8-82.8); PLATELET COUNT 243 K/MM3 (134-434); RBC 4.58 M/mm3 (3.60-5.2); RDW 15.6 % (11.6-15.6); WHITE BLOOD COUNT 8.1 K/mm3 (4.0-10.0)
[2018-10-18 21:27] LABS: HCG,QUALITATIVE URINE Negative
[2018-10-18 21:31] LABS: EPI CELLS 2.7 /HPF (0-5/HPF); HYALINE CASTS 3 /lpf (0-8); PH,URINE 8.5 (5.0-8.0); URINE APPEARANCE TURBID; URINE BACTERIA 58.6 /hpf (NEGATIVE); URINE BILIRUBIN NEGATIVE (NEGATIVE); URINE COLOR YELLOW; URINE GLUCOSE (UA) NEGATIVE (NEGATIVE); URINE KETONE NEGATIVE (NEGATIVE); URINE LEUK ESTERASE 1+ (NEGATIVE); URINE NITRITE NEGATIVE (NEGATIVE); URINE PROTEIN NEGATIVE (NEGATIVE); URINE RBC 0 /hpf (0-4); URINE UROBILINOGEN 0.2 mg/dL (0.2-1.0); URINE WBC 9 /hpf (0-5)
[2018-10-18 21:51] LABS: ALBUMIN 3.7 g/dl (3.4-5.0); BILIRUBIN,TOTAL 0.2 mg/dL (0.2-1); BLOOD UREA NITROGEN 6.5 mg/dL (7-18); CALCIUM 8.9 mg/dL (8.5-10.1); CREATININE 0.6 mg/dL (0.55-1.3); POTASSIUM 3.7 mmol/L (3.5-5.1); TOT PROT 7.1 g/dl (6.4-8.2)
[2018-10-18] MEDS ORDERED: CEFTRIAXONE 1,000 MG in DEXTROSE 5%-WATER - 50 ML IVPB ONE (22:19)
[2018-10-18] MEDS ORDERED: CEFTRIAXONE 1 GM/50 ML BAG ONE (23:01)
== END 2018-10-19 00:25 | disposition home or self-care (01) ==
LOC: JER 20:24
PROC: 3E03329 Introduction of Other Anti-infective into Peripheral Vein, Percutaneous Approach (ICD-10-PCS; principal; 2018-10-18)
PROC: 3E033GC Introduction of Other Therapeutic Substance into Peripheral Vein, Percutaneous Approach (ICD-10-PCS; 2018-10-18)
DX: N30.00 Acute cystitis without hematuria (principal)
CPT/HCPCS: 36415; 76830-TC; 80053; 81003; 84703; 85025; 87086; 96365; 96375; 99281-25; J7030